=== PATIENT | male | born 1980 | race Caucasian/White ===

== ENCOUNTER 2022-06-15 17:04 | Emergency (ER) | payer MEDICAID, SELFPAY ==
[2022-06-15 17:06] VITALS: BP 147/95; PULSE 52; RESP 14; TEMP 36.6; O2SAT 99; BMI 29.1
--- NOTE | 2022-06-15 17:12 | NURSING ---
NO OLD EKGS
--- NOTE | 2022-06-15 17:30 | EKG12_ITS ---
Test Reason : CP Blood Pressure : / mmHG Vent. Rate : 051 BPM Atrial Rate : 051 BPM P-R Int : 150 ms QRS Dur : 092 ms QT Int : 412 ms P-R-T Axes : 026 019 037 degrees QTc Int : 379 ms Sinus bradycardia Otherwise normal ECG Confirmed by FREDDIE MEJIAS, COOPER ([id number]), story editor YUSRA HELLER ([id number]) on 06/17/2022 2:14:04 P M Referred By: SERGIO/BB Confirmed By:COSTA FRAZIER MD
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
[2022-06-15 18:23] LABS: Anion Gap 2 (5-15); BUN 14 mg/dL (7-18); BUN/Creat Ratio 14.8 RATIO (10-20); Calcium,Total 8.9 mg/dL (8.5-10.1); Chloride 109 mmol/L (98-107); Creatinine, Serum 0.95 mg/dL (0.70-1.30); EST Glomerular Filtration Rate 92 mL/min (>60); Est Glom Filt Rate - Afr Amer 111 mL/min (>60); Estimated Creatinine Clearance 103.52 ml/min; Glucose 100 mg/dL (74-106); Potassium 3.9 mmol/L (3.5-5.1); Sodium Level 143 mmol/L (136-145); Troponin-I HS 4 pg/mL (3.0-78.0)
[2022-06-15 18:35] LABS: Absolute Lymphocyte Count 2.16 X10^3/uL (0.83-4.51); Absolute Neutrophil Count 4.2 X10^3/uL (2.0-7.7); Basophil# 0.01 X10^3/uL; Basophil% 0.1 % (0-1); Eosinophil# 0.16 X10^3/uL; Eosinophils% 2.3 % (0-5); Hematocrit 45.4 % (40-54); Hemoglobin 15.5 g/dL (13.0-16.5); Lymphocyte # 2.16 X10^3/ul (0.83-4.51); Lymphocyte % 30.5 % (19-41); Mean Corp Hgb Conc 34.1 g/dL (32-36); Mean Corpuscular Hgb 33.3 pg (27.0-32.0); Mean Corpuscular Volume 97.4 fL (80-94); Mean Platelet Vol. 10.7 fl (6.2-12.0); Monocyte# 0.52 X10^3/uL; Monocyte% 7.3 % (0-10); NRBC Flagged by Analyzer 0 % (0-5); Neutrophil # 4.21 X10^3/uL (2.7-7.7); Neutrophil % 59.5 % (47-70); Platelet Count 243 K/mm3 (150-450); RBC Distribution Width CV 12.2 % (11.6-14.6); RBC Distribution Width SD 44.2 fl (35.1-43.9); Red Blood Count 4.66 M/mm3 (4.6-6.2); White Blood Count 7.1 K/mm3 (4.4-11.0)
[2022-06-15 19:04] VITALS: O2SAT 99
[2022-06-15 19:05] VITALS: BP 151/106; PULSE 57; RESP 15; O2SAT 98; O2SAT 99
--- NOTE | 2022-06-15 20:35 | CT_ITS ---
EXAM: CT CHEST WITH INTRAVENOUS CONTRAST CLINICAL INDICATION: abnormal CXR, fever, cough TECHNIQUE: Helically acquired images were obtained of the chest with intravenous contrast. This CT exam was performed using one or more of the following dose reduction techniques: automated exposure control, adjustment of the mA and/or kV according to patient size, and/or use of iterative reconstruction technique. This report was created using [employer] report generation technology. CONTRAST: IV 100mL Isovue-370 RADIATION DOSE: CTDIvol = 31.31 mGy, DLP = 2686.22 mGy-cm COMPARISON: None. FINDINGS: LUNGS AND PLEURAL SPACES: Innumerable calcified nodules in both lung potter. This likely relates to granulomatous infection. No pleural effusion or thickening. No pneumothorax. HEART: Unremarkable. Heart size is normal. No pericardial effusion. No significant coronary artery calcifications. MEDIASTINUM: See below. THYROID: Unremarkable. No thyroid lesions. BONES/JOINTS: Degenerative findings in the thoracic spine. No suspicious lytic or blastic abnormality. VASCULATURE: Unremarkable. Thoracic aorta is non-dilated. No thoracic aortic dissection. No obvious central pulmonary embolism although this study was not performed with the pulmonary embolism protocol. LYMPH NODES: Reactive lymph nodes in the hilum and mediastinum are noted. Some are calcified. This again is also likely related to granulomatous infection. CT/Chest WITH Contrast IMPRESSION: Innumerable calcified nodules in both lung potter. This likely relates to granulomatous infection. Electronically Signed: Enrrique Lockhart MD at 21:29 EDT Reading Location ID and State: [facility] / [place] , Service support ,
--- NOTE | 2022-06-15 20:35 | CT_ITS ---
EXAM: CT ANGIOGRAPHY HEAD AND NECK WITH INTRAVENOUS CONTRAST CLINICAL INDICATION: sudden onset headache, left sided paresthesias TECHNIQUE: [place]/head and neck CT angiography protocol performed with intravenous contrast. This CT exam was performed using one or more of the following dose reduction techniques: automated exposure control, adjustment of the mA and/or kV according to patient size, and/or use of iterative reconstruction technique. This report was created using [employer] report generation technology. MIP reconstructed images were created and reviewed. CONTRAST: IV 100mL Isovue-370 RADIATION DOSE: CTDIvol = 31.31 mGy, DLP = 2686.22 mGy-cm COMPARISON: None. FINDINGS: HEAD: RIGHT ANTERIOR CEREBRAL ARTERY: Unremarkable. No significant stenosis at the visualized segments. Anterior communicating artery is present. No aneurysm. RIGHT MIDDLE CEREBRAL ARTERY: Unremarkable. No significant stenosis at the visualized segments. No aneurysm. RIGHT POSTERIOR CEREBRAL ARTERY: Unremarkable. No occlusion or significant stenosis. No aneurysm. RIGHT INTRACRANIAL INTERNAL CAROTID ARTERY: Unremarkable. No significant stenosis. No dissection or occlusion. RIGHT INTRACRANIAL VERTEBRAL ARTERY: Unremarkable. No significant stenosis. No dissection or occlusion. LEFT ANTERIOR CEREBRAL ARTERY: Unremarkable. No significant stenosis at the visualized segments. No aneurysm. LEFT MIDDLE CEREBRAL ARTERY: Unremarkable. No significant stenosis at the visualized segments. No aneurysm. LEFT POSTERIOR CEREBRAL ARTERY: Unremarkable. No occlusion or significant stenosis. No aneurysm. LEFT INTRACRANIAL INTERNAL CAROTID ARTERY: Unremarkable. No significant stenosis. No dissection or occlusion. LEFT INTRACRANIAL VERTEBRAL ARTERY: Unremarkable. No significant stenosis. No dissection or occlusion. BASILAR ARTERY: Unremarkable. No significant stenosis. No aneurysm. OTHER VASCULATURE: There are no acute findings of the right and left internal carotid artery. ALL ABOVE CRITERIA BY NASCET. No vascular malformation. SINUSES: There is sinus disease. NECK: RIGHT COMMON CAROTID ARTERY: Unremarkable. No significant stenosis. No dissection or occlusion. RIGHT EXTRACRANIAL INTERNAL CAROTID ARTERY: Unremarkable. No significant stenosis. No dissection or occlusion. RIGHT EXTERNAL CAROTID ARTERY: Unremarkable. No occlusion. RIGHT EXTRACRANIAL VERTEBRAL ARTERY: Unremarkable. No significant stenosis. No dissection or occlusion. LEFT COMMON CAROTID ARTERY: Unremarkable. No significant stenosis. No dissection or occlusion. LEFT EXTRACRANIAL INTERNAL CAROTID ARTERY: Unremarkable. No significant stenosis. No dissection or occlusion. LEFT EXTERNAL CAROTID ARTERY: Unremarkable. No occlusion. LEFT EXTRACRANIAL VERTEBRAL ARTERY: Unremarkable. No significant stenosis. No dissection or occlusion. GREAT VESSELS OF AORTIC ARCH: Unremarkable as visualized. Normal anatomy, patent. LUNG APICES: Unremarkable as visualized. HEAD and NECK: BONES/JOINTS: Unremarkable. No discrete lytic or blastic abnormalities. SOFT TISSUES: Unremarkable. OTHER FINDINGS: There are no acute findings of the [place] without a demonstrated aneurysm or hemodynamically significant stenosis. ALL ABOVE CRITERIA BY NASCET. CAROTID STENOSIS REFERENCE USING NASCET CRITERIA: % ICA stenosis = (1 - narrowest ICA diameter/diameter of distal cervical ICA) x 100. Mild - <50% stenosis. Moderate - 50-69% stenosis. Severe - 70-94% stenosis. Near occlusion - 95-99% stenosis. Occluded - 100% stenosis. CT/CTA Head AND Neck W/ Contrast IMPRESSION: 1. There are no acute findings of the [place] without a demonstrated aneurysm or hemodynamically significant stenosis. ALL ABOVE CRITERIA BY NASCET. 2. There are no acute findings of the right and left internal carotid artery. ALL ABOVE CRITERIA BY NASCET. Electronically Signed: Enrrique Lockhart MD at 21:31 EDT ,
[2022-06-15] MEDS: Metoclopramide 10 MG/2 ML Vial 5 MG IV (20:43)
[2022-06-15] MEDS: 0.9% Normal Saline 1,000 ML 999 ML IV (20:43)
[2022-06-15 21:00] VITALS: BP 135/74; PULSE 46; RESP 15; O2SAT 99
[2022-06-15] MEDS: Ketorolac 15 MG/ML Vial IV (22:02)
[2022-06-15 23:00] VITALS: BP 124/82; PULSE 56; RESP 15; O2SAT 99
[2022-06-15] MEDS: diazePAM 5 MG Tablet PO (23:16)
--- NOTE | 2022-06-16 00:24 | EX.ED.DYSGE1 ---
HPI History of Present Illness Chief Complaint: Chest Pain Informant: patient Narrative Narrative: Patient is a 42 year old male with history of remote histoplasmosis presenting with multiple complaints. Patient notes he has been having migraines for the past few months. States they change sides and feel like a vice is on his head. He notes for the past few weeks he did have intermittent chest discomfort. Monday morning, 5 days ago, patient was driving when he had an episode of chest discomfort, hot flash and blurred vision. He had to stop driving and then 10 minutes and had another episode. He notes rest the day he slept. He has been having night sweats but no change in appetite. He has had nausea but no vomiting. He has had photophobia. 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 Denies hitting his head. Patient reports that couple weeks ago he had 3 days of fevers with a T-max of 103.2. Notes that self resolved but he has been having no energy and has been sleeping a lot. Denies any significant respiratory symptoms. Is having tingling in his left arm which is also going on for couple days. Does not currently have a primary care doctor. Denies any sick contacts. No other complaints at this time. [facility] Medical History Injury of one lung Home Medications NK 06/15/22 [History Last Taken Unknown] Allergy/AdvReac Type Severity Reaction Status Date / Time No Known Allergies Allergy Verified 06/15/22 17:05 Social History Smoking Status: Current every day smoker tobacco type: smokeless tobacco ROS ROS ED Constitutional Constitutional ED: Reports chills, fever(s) and sweats Eyes Eyes: Reports blurry vision ENT ENT ED: Denies ear pain, rhinorrhea or sore throat Cardiovascular Cardiovascular: Reports chest pain; Denies palpitations Respiratory/Chest Respiratory/Chest: Reports cough; Denies dyspnea Gastrointestinal Gastrointestinal: Reports nausea; Denies abdominal pain, constipation, diarrhea or vomiting Genitourinary Genitourinary ED: Denies dysuria or urinary frequency Musculoskeletal Musculoskeletal: Reports myalgias; Denies arthralgias Integumentary Denies rash Neurologic Neurologic: Reports headache(s) and paresthesias; Denies weakness Psychiatric Psychiatric: Denies anxiety Endocrine Endocrinology: Denies cold intolerance Hematologic/Lymphatic Hematologic/Lymphatic: Denies easy bleeding or easy bruising EXAM Physical Exam Const Vital Signs: 06/15/22 17:06 06/15/22 19:04 06/15/22 19:05 Temperature 97.9 F Temperature Source Temporal Pulse Rate 52 L 57 L Respiratory Rate 14 15 Blood Pressure 147/95 H 151/106 H Blood Pressure Mean 112 121 Pulse Ox 99 99 99 Oxygen Delivery Method Room Air Room Air Room Air 06/15/22 19:05 06/15/22 21:00 06/15/22 23:00 Temperature Temperature Source Pulse Rate 46 L 56 L Respiratory Rate 15 15 Blood Pressure 135/74 H 124/82 H Blood Pressure Mean 94 96 Pulse Ox 98 99 99 Oxygen Delivery Method Room Air Room Air Room Air Positive well nourished and well developed General Appearance ED: well developed and NAD HEENT Reports TM's clear and moist mucous membranes Negative for trauma Tympanic Membrane ED: Yes TM's clear Eyes PERRL and EOMs intact bilaterally Eyes Narrative: No nystagmus Neck supple and no JVD Neck Narrative: No meningeal signs Chest Wall inspection of chest normal and palpation of chest normal Resp normal respiratory effort and clear to auscultation bilaterally Cardio regular rate, regular rhythm and no murmurs GI normal to inspection, nondistended, normoactive bowel sounds and non-tender Palpation: Negative for guarding Back/Spine no CVA tenderness Neuro oriented x3 and CN's II-XII intact bilaterally Neuro Narrative: Subjective paresthesias to the left upper extremity Motor Exam: strength 5/5 throughout Psych mental status grossly normal Skin no rashes or lesions noted and no wounds MDM MDM MDM Narrative Medical decision making narrative: Patient is evaluated for multiple complaints including headache, chest discomfort, left arm numbness and blurred vision. Symptoms been going on for a minimum of 5 days but his headache has been going on for months. Does have some's paresthesias to his left side but otherwise has a normal neurologic exam. CT head and neck with and without contract obtained did not show any acute process including stenosis, aneurysm no reported signs of ischemic stroke.Once his CT came back negative patient is given IV Toradol in addition to IV fluids and Reglan for his headache. Cardiac work-up is negative for his chest x-ray shows a miliary pattern bilaterally and CT of the chest was ordered. This continues to show innumerable calcified nodules of both lung potter likely related to granulomatous infection. He does not have fever currently or leukocytosis. Case is discussed with Dr. Boston, pulmonology on-call who states that differential includes histoplasmosis as well as tuberculosis. Patient denies any risk factors for TB but TB QuantiFERON is ordered. After further discussion patient admits that he does have a history of histoplasmosis that was treated back in 2009 or 2010. Case is discussed with ID, Dr. Guillen, who recommends ordering histoplasmosis antibody and antigens which are send outs. Patient be given outpatient follow-up with him. Patient is agreeable this plan of care. He is given IV magnesium and Valium for his headache no repeat evaluation is resting and feels improved. Will be discharged home with outpatient follow-up. Is also given referral for primary care doctor. Given the longevity of his symptoms was no acute imaging findings on head imaging and I do not think he needs further observation or admission. I do not think he has meningitis noted I think he would benefit from an LP at this time. Lab Data Labs: Laboratory Results - last 24 hr 06/15/22 06/15/22 17:55 17:55 WBC 7.1 RBC 4.66 Hgb 15.5 Hct 45.4 MCV 97.4 H MCH 33.3 H MCHC 34.1 RDW Std Deviation 44.2 H RDW Coeff of Renzo 12.2 Plt Count 243 MPV 10.7 Immature Gran % (Auto) 0.300 Neut % (Auto) 59.5 Lymph % (Auto) 30.5 [place] % (Auto) 7.3 Eos % (Auto) 2.3 Baso % (Auto) 0.1 Absolute Neuts (auto) 4.2 Absolute Lymphs (auto) 2.16 Nucleated RBC % 0 Sodium 143 Potassium 3.9 Chloride 109 H Carbon Dioxide 32.0 Anion Gap 2 L BUN 14 Creatinine 0.95 Estim Creat Clear Calc 103.52 Est GFR (MDRD) Af Amer 111 Est GFR (MDRD) Non-Af 92 BUN/Creatinine Ratio 14.8 Glucose 100 Calcium 8.9 Troponin I High Sens 4 Radiography Chest X-Ray - ED: 1 View, Read by ED Physician, Read by Radiologist and - (Diffuse bilateral miliary nodules) Diagnostic Testing: Clinical Impression(s) from Imaging Studies Chest X-Ray 06/15/22 17:37 IMPRESSION: Multiple bilateral miliary nodules. CT chest can better evaluate for possible miliary type pneumonia. Electronically Signed: Enrrique Lockhart MD at 17:47 EDT , Chest CT 06/15/22 20:35 IMPRESSION: Innumerable calcified nodules in both lung potter. This likely relates to granulomatous infection. Electronically Signed: Enrrique Lockhart MD at 21:29 EDT , Head/Neck CTA 06/15/22 20:35 IMPRESSION: 1. There are no acute findings of the [place] without a demonstrated aneurysm or hemodynamically significant stenosis. ALL ABOVE CRITERIA BY NASCET. 2. There are no acute findings of the right and left internal carotid artery. ALL ABOVE CRITERIA BY NASCET. Electronically Signed: Enrrique Lockhart MD at 21:31 EDT , Rhythm Strip Rhythm Strip: Sinus Bradycardia Rate: 51 Ectopy: None EKG Initial EKG: Attestation: I personally reviewed and interpreted this EKG as follows: Interpretation: Sinus Bradycardia Comments: Sinus bradycardia rate of 51 Normal axis Normal intervals Normal ST segment Discharge Plan Triage Chief Complaint: Chest Pain ED Provider: Daisy Robertson Dx/Rx/DC Orders Clinical Impression: Headache, Chest pain Instructions: ED Blurred Vision, ED Headache, Tension, ED Pain, Acute, Uncertain Cause Prescriptions: No Action NK Primary Care Provider: Care Physician,No Primary Referrals: Faith Hackett MD [Med Staff - Catalyst Plant Supervisor] - As soon as possible Charlie Guillen MD [Med Staff - Active Staff] - 10-14 Days if not better Rony Hawk MD [Med Staff - Active Staff] - As soon as possible Care Physician,No Primary [Primary Care Provider] - Activity Restrictions/Additional Instructions: Your work-up showed a changes to your lungs which could be consistent with histoplasmosis as well as other granulomatous disease. You have been given referral for infectious disease follow-up for this. He possibly may follow-up for primary care doctor as well as an technology strategist for blurred vision. Your heart work-up was normal with no signs of aortic dissection, heart attack or acute bacterial infection. Alternate ibuprofen and Tylenol for discomfort at home. Disposition Disposition: Home, Self Care
[2022-06-16 01:24] VITALS: BP 140/89; PULSE 78; RESP 16; O2SAT 94
[2022-06-18 00:06] LABS: QNTFERON TB Mitogen Value > 10.00 IU/mL (.); QNTFERON TB Nil Value 0.43 IU/mL (.); QNTFERON TB1+ Ag Value 0.04 IU/mL (.); QNTFERON TB2+ Ag Value 0.06 IU/mL (.)
[2022-06-18 09:43] LABS: QNTIFERON TB Positive Criteria Negative (Negative)
[2022-06-23 15:43] LABS: Histoplasma Abs Negative (Neg:<1:1)
== END 2022-06-16 01:25 | disposition home or self-care (01) ==
PROVIDERS: Emergency Provider Emergency Medicine; Visit Provider Emergency Medicine
DX: R07.9 Chest pain, unspecified (principal); R51.9 Headache, unspecified; F17.220 Nicotine dependence, chewing tobacco, uncomplicated
CPT/HCPCS: 70496; 70498; 71045; 71260; 80048; 84484; 85025; 86480; 86698; 93005; 96361; 96365; 96366; 96375; 99285; J7030; Q9967; A4216

== ENCOUNTER → 2022-06-17 | Outpatient (CLI) | payer MEDICAID, SELFPAY ==
--- NOTE | 2022-06-17 10:00 | MRI_ITS ---
HISTORY: SYNCOPE, COLLAPSE, DIPLOPIA. TECHNIQUE: Multiplanar and multisequence MR images of the brain were obtained before and after the intravenous administration of 19 mL Clariscan. 351 images. COMPARISON: CT 06/15/2022. FINDINGS: BRAIN PARENCHYMA: No significant signal abnormality or enhancing lesion in the brain parenchyma. No abnormal focus of restricted diffusion. No acute intracranial hemorrhage identified. CSF SPACES: Cerebral ventricles, cortical sulci, and other extra-axial CSF spaces within normal limits in size for patient''s age. No significant midline shift or other mass effect.No extra-axial fluid collection. VASCULAR SYSTEM: Major intracranial flow voids are maintained. PARANASAL SINUSES AND MASTOID AIR CELLS: Moderate fluid and mucosal thickening in the left maxillary sinus again seen. ORBITS: Symmetric contents. MRI/Brain W/WO Contrast IMPRESSION: Unremarkable MRI brain. No evidence for significant signal abnormality of the brain, enhancing intracranial mass, acute infarct, or acute intracranial hemorrhage. Left maxillary sinusitis. Electronically Signed: Marlena Childress MD at 11:37 EDT ,
== END | disposition home or self-care (01) ==
LOC: MRI 09:44
PROVIDERS: Visit Provider Nurse Practitioner Family
DX: R55 Syncope and collapse (principal); H53.2 Diplopia; J32.0 Chronic maxillary sinusitis
CPT/HCPCS: 70553; A9575

== ENCOUNTER → 2022-07-01 | Outpatient (CLI) | payer MEDICAID, SELFPAY ==
--- NOTE | 2022-07-01 14:33 | TELEMED_ITS ---
[facility] has confirmed receipt of a request for visit. This document confirms receipt of the order initiating the consult. To find the results of the consultation, please view the patient's reports for the scanned Telemed Consult.
== END | disposition home or self-care (01) ==
LOC: PSN 12:29
PROVIDERS: PCP Nurse Practitioner Family; Referring Provider Nurse Practitioner Family; Visit Provider Nurse Practitioner Family
DX: G43.109 Migraine with aura, not intractable, without status migrainosus (principal)
CPT/HCPCS: 95819

== ENCOUNTER 2022-07-08 10:52 | Day surgery (SDC) | payer MEDICAID, SELFPAY ==
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
[2022-07-08] VITALS (7 sets, daily range): BP systolic 100–127; BP diastolic 69–86; PULSE 71–80; RESP 16–20; TEMP 36.4–36.7; O2SAT 94–98; BMI 29.0
[2022-07-08] MEDS: Lactated Ringers 1,000 ML 15 ML IV (11:20)
[2022-07-08] MEDS: Lidocaine 2% (5ml sdv) 5 ML VIAL.MPF (12:00)
[2022-07-08] MEDS: Lidocaine Jelly 2% 20 ML Syringe (URO-JET) 1 APPLIC (12:10)
--- NOTE | 2022-07-08 12:30 | OP.BRONCH_ITS ---
Patient Name: Go Ramos Procedure Date: 07/08/2022 11:57 AM Date of : 1980 Age: 42 Procedure: Bronchoscopy Indications: Abnormal CT scan of chest Providers: Aaron Brower MD Referring MD: Aaron Brower MD Medicines: See the Anesthesia note for documentation of the administered medications Complications: No immediate complications Procedure: Pre-Anesthesia Assessment: - A History and Physical has been performed. Patient meds and allergies have been reviewed. The risks and benefits of the procedure and the sedation options and risks were discussed with the patient. All questions were answered and informed consent was obtained. Patient identification and proposed procedure were verified prior to the procedure by the physician and the nurse in the procedure room. Mental Status Examination: alert and oriented. Airway Examination: normal oropharyngeal airway. Respiratory Examination: clear to auscultation. CV Examination: normal. ASA Grade Assessment: II - A patient with mild systemic disease. After reviewing the risks and benefits, the patient was deemed in satisfactory condition to undergo the procedure. The anesthesia plan was to use monitored anesthesia care (MAC). Immediately prior to administration of medications, the patient was re-assessed for adequacy to receive sedatives. The heart rate, respiratory rate, oxygen saturations, blood pressure, adequacy of pulmonary ventilation, and response to care were monitored throughout the procedure. The physical status of the patient was re-assessed after the procedure. After I obtained informed consent, the scope was passed under direct vision. Throughout the procedure, the patient's blood pressure, pulse, and oxygen saturations were monitored continuously. The bronchoscope was introduced through the mouth and advanced to the tracheobronchial tree. The procedure was accomplished without difficulty. The patient tolerated the procedure well. Findings: Bilateral Lung Abnormalities: Scant, mucoid, thick secretions were found throughout the tracheobronchial tree. They were not obstructing the airway. BAL was performed in the left lower lobe of the lung and sent for cell count, bacterial culture, viral smears & culture, and fungal & AFB analysis and cytology, AFB analysis & culture, fungal analysis, Cryptococcal antigen and Histoplasma antigen. 80 mL of fluid were instilled. 30 mL were returned. The return was cloudy. BAL was performed in the right middle lobe of the lung and sent for cell count, bacterial culture, viral smears & culture, and fungal & AFB analysis and cytology, AFB analysis & culture, fungal analysis, Cryptococcal antigen and Histoplasma antigen. 60 mL of fluid were instilled. 25 mL were returned. The return was cloudy. Impression: - Abnormal CT scan of chest - Scant, mucoid, thick secretions were found throughout the tracheobronchial tree. - Bronchoalveolar lavage was performed in the left lower lobe. - Bronchoalveolar lavage was performed right middle lobe. Recommendation: - Await BAL results. Procedure Code(s): --- Professional --- 78164, Bronchoscopy, rigid or flexible, including fluoroscopic guidance, when performed; with bronchial alveolar lavage 91579, Bronchoscopy, rigid or flexible, including fluoroscopic guidance, when performed; with bronchial alveolar lavage Diagnosis Code(s): --- Professional --- R09.89, Other specified symptoms and signs involving the circulatory and respiratory systems R93.8, Abnormal findings on diagnostic imaging of other specified body structures CPT copyright 2017 [employer]. All rights reserved. The codes documented in this report are preliminary and upon level vial inspector review may be revised to meet current compliance requirements. DO Aaron Castano MD 07/08/2022 12:30:06 PM This report has been signed electronically. Number of Addenda: 0 Note Initiated On: 07/08/2022 11:57 AM
--- NOTE | 2022-07-08 12:38 | FLU_PTH ---
PATIENT: PAYTON PRITCHETT LOC: EN U#:[id number] AGE/SX: 42/M ROOM: RE07/08/[address]: Dr. Aaron Brower DO : 1980 BED: DIS: 07/08/2022 SPEC #: [id number] RECD: 07/08/22 12:38 STATUS: ANDREW RECon #: [id number] MAXIMILIANO: 07/08/22 12:[address]: Aaron Brower DEPT: CYTOLOGY RECD BY: Paige Harris ENTERED: 07/11/22 10:12 SP TYPE: Fluid OTHR DR: Ashley Escoto, CASTING CARRIER-C Tissues: A - Bronchus of left lower lobe B - Bronchus of right middle lobe Procedures: PC (control) Special Stain Group II Special Stain Group I Surgery Specimen Level IV AFB Stain (control) GMS Stain (control) Cytospin Fluid HEADER OPERATION: Bronchoscopy (MAC) with washings PRE-OP DIAGNOSIS: History of histoplasmosis TISSUE SUBMITTED: A - Bronchoalveolar lavage left lower lobe, B - Bronchoalveolar lavage right middle lobe DIAGNOSIS CYTOLOGY A. Bronchoalveolar lavage, left lower lobe of lung (cytospin and cell block): Negative for malignant cells. Negative for micro-organisms. See comment. B. Bronchoalveolar lavage, right middle lobe of lung (cytospin and cell block): Negative for malignant cells. Negative for micro-organisms. See comment. AM:luba 07/12/2022 COMMENT A & B. AFB, GMS and PCP stains with matched controls are negative for micro-organisms. Clinical correlation is suggested. CYTOLOGY STUDY Slides are reviewed. CYTOLOGY GROSS A - Received is 10 ml of cloudy opaque fluid with particles fluid labeled with the patient's name and and designated per the requisition as left lower lobe. Submitted for cytology preparation including cell block. B - Received is 15 ml of dark cloudy opaque fluid with particles fluid labeled with the patient's name and and designated per the requisition as left lower lobe. Submitted for cytology preparation including cell block. / luba 07/11/2022 TC:5 CPT: 87778 x2, 63829 x2, 77841 x2, 21837 x4
[2022-07-08 12:56] LABS: Cytology, Body Fluid / CSF SEE PATHOLOGY REPORT
[2022-07-08 12:59] LABS: Cytology, Body Fluid / CSF SEE PATHOLOGY REPORT
[2022-07-08 14:07] LABS: Appearance/Body Fluid CLEAR; Color/Body Fluid COLORLESS; White Blood Count/Body Fluid 4 /mm3
[2022-07-08 14:08] LABS: Appearance/Body Fluid CLEAR; Body Fluid QC Type(s) BF3Q; Color/Body Fluid COLORLESS
[2022-07-08 14:09] LABS: Body Fluid QC Type(s) BF1Q; Red Cell Count/Body Fluid 1 /mm3; White Blood Count/Body Fluid 0.513 10^3/uL
[2022-07-08 15:01] LABS: Lymphocytes 45 %; Monocytes 5 %; Neutrophil (Segs) 18 %; Other Cell Type/BF 32 %
[2022-07-08 15:05] LABS: Lymphocytes 10 %; Monocytes 2 %; Neutrophil (Segs) 42 %; Other Cell Type/BF 46 %
[2022-07-09 01:39] LABS: Red Cell Count/Body Fluid 2 /mm3
[2022-07-11 12:08] LABS: Source- Body Fluid BRONCHIAL LAVAGE
[2022-07-11 12:09] LABS: Source- Body Fluid BRONCHIAL LAVAGE
[2022-07-13 09:02] LABS: Pathologist Comment/Body Fluid Reviewed
[2022-07-13 09:03] LABS: Pathologist Comment/Body Fluid Reviewed
== END 2022-07-08 13:14 | disposition home or self-care (01) ==
LOC: EN 10:53 → AC 10:54
PROVIDERS: PCP Nurse Practitioner Family; Referring Provider Internal Medicine Critical Care Medicine; Visit Provider Internal Medicine Critical Care Medicine
PROC: 0BJ08ZZ Inspection of Tracheobronchial Tree, Via Natural or Artificial Opening Endoscopic (ICD-10-PCS; CPT 31622; principal; 2022-07-08 11:45)
DX: R93.89 Abnormal findings on diagnostic imaging of other specified body structures (principal); R09.89 Other specified symptoms and signs involving the circulatory and respiratory systems; F17.220 Nicotine dependence, chewing tobacco, uncomplicated; F41.9 Anxiety disorder, unspecified; K21.9 Gastro-esophageal reflux disease without esophagitis; F32.A Depression, unspecified; F12.90 Cannabis use, unspecified, uncomplicated; Z79.899 Other long term (current) drug therapy
CPT/HCPCS: 31624; 87015; 87070; 87101; 87116; 87205; 87206; 87252; 88108; 88305; 88312; 88313; 89050; J7120; J2405

== ENCOUNTER → 2022-08-02 | Outpatient (CLI) | payer MEDICAID, SELFPAY ==
--- NOTE | 2022-08-04 07:58 | PFT ---
INTRODUCTION: The patient is a 42-year-old male that presents for pulmonary function studies secondary to a diagnosis of cough. Respiratory therapy reported good patient effort. Bronchodilators were used during testing. INTERPRETATION: Forced expiration spirometry demonstrates no evidence of a large airways obstructive ventilatory defect. There was no significant response to aerosolized bronchodilators. Spirograms are of good quality and plateau normally. The respiratory flow volume loop was normal. Body plethysmography was performed and reveals lung volumes to be within normal limits. Diffusing capacity by single breath CO was also within normal limits. IMPRESSION: Grossly normal pulmonary function studies.
== END | disposition home or self-care (01) ==
LOC: PSN 08:43
PROVIDERS: Referring Provider Nurse Practitioner Acute Care; Visit Provider Nurse Practitioner Acute Care
DX: R05.9 Cough, unspecified (principal)
CPT/HCPCS: 94060; 94726; 94729

== ENCOUNTER → 2023-03-06 | Outpatient (CLI) | payer MEDICAID, SELFPAY | END | disposition home or self-care (01) | LOC: RAD.FUTURE 17:00 | PROVIDERS: Referring Provider Nurse Practitioner Family; Visit Provider Nurse Practitioner Family | DX: S39.012A Strain of muscle, fascia and tendon of lower back, initial encounter (principal); X58.XXXA Exposure to other specified factors, initial encounter ==

== ENCOUNTER → 2023-03-07 | Outpatient (CLI) | payer MEDICAID, SELFPAY ==
--- NOTE | 2023-03-07 14:55 | RAD_ITS ---
INDICATION: STRAIN OF MUSCLE EXAMINATION/TECHNIQUE: X-RAY - XR Spine Lumbar 2 or 3 Views COMPARISON: CT abdomen and pelvis November 25, 2011 FINDINGS: VERTEBRAE: Preserved vertebral body height. No fracture. There is degenerative anterior endplate spurring at nearly all levels of the visualized thoracolumbar spine No spondylolisthesis. Preservation of the normal lumbar lordosis. Early degenerative changes in the lower lumbar facet joints. DISCS: Mild to moderate degenerative disc height narrowing at L4-5, while more borderline degenerative disc height narrowing seen at L2-3, L3-4, and L5-S1. INCLUDED ABDOMEN: Included bowel gas pattern is non-obstructive. RAD/Lumbar Spine 2 or 3 Views IMPRESSION: Degenerative changes of the spine, as described, mildly progressed since November 2011. Electronically Signed: Jaime Cartagena MD at 16:36 EDT Reading Location ID and State: [id number] / Unknown , Service support ,
== END | disposition home or self-care (01) ==
PROVIDERS: Referring Provider Nurse Practitioner Family; Visit Provider Nurse Practitioner Family
DX: S39.012A Strain of muscle, fascia and tendon of lower back, initial encounter (principal); X58.XXXA Exposure to other specified factors, initial encounter
CPT/HCPCS: 72100

== ENCOUNTER → 2023-05-08 | Outpatient (CLI) | payer MEDICAID, SELFPAY ==
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
== END | disposition home or self-care (01) ==
PROVIDERS: Referring Provider Nurse Practitioner Family; Visit Provider Nurse Practitioner Family
DX: J20.9 Acute bronchitis, unspecified (principal)
CPT/HCPCS: 71046

== ENCOUNTER → 2023-06-27 | Outpatient (CLI) | payer SELFPAY | END | disposition home or self-care (01) | PROVIDERS: Referring Provider Nurse Practitioner Family; Visit Provider Nurse Practitioner Family | DX: G47.10 Hypersomnia, unspecified (principal) | CPT/HCPCS: 95806 ==